=== PATIENT | female | born 1950 | race Caucasian/White ===

== ENCOUNTER 2016-12-12 13:25 | Emergency (ER) | payer OTHER ==
[~2016-12-12] VITALS: Ht 167.6 cm; Wt 93.0 kg
[~2016-12-12 13:25] MED LIST: CYMB30CA PO; DIPH2%T PO; NORV10TA PO; PRED5TAB PO; RANI150 PO; SYMB80AE INH
[2016-12-12 13:29] VITALS: BP 122/70; PULSE 85; RESP 16; RESP 17; TEMP 98; O2SAT 17; O2SAT 98
[2016-12-12 13:44] VITALS: O2SAT 96
[2016-12-12] MEDS ORDERED: GLUC100013 PO (13:44)
[2016-12-12] MEDS ORDERED: INDA1.25 (13:44)
[2016-12-12] MEDS ORDERED: PLAQ200T PO (13:44)
[2016-12-12] MEDS ORDERED: CALC1TAB12 PO (13:44)
[2016-12-12] MEDS ORDERED: POTA-163 PO (13:44)
[2016-12-12] MEDS ORDERED: MULTTAB67 PO (13:44)
[2016-12-12] MEDS ORDERED: SYMB80AE INH (13:44)
[2016-12-12] MEDS ORDERED: LEVO100T5 PO (13:44)
[2016-12-12] MEDS ORDERED: SODIUM CHLORIDE 0.9% FLUSH 10 ML FLUSH IVF PRN (13:45)
--- NOTE | 2016-12-12 13:46 | PD ---
HPI Chief Complaint: Respiratory Symptoms Time Seen by Provider: 13:36 Travel History International Travel<30 days: No Contact w/Intl Traveler<30days: No Traveled to known affect area: No History of Present Illness HPI PATIENT C/O FEW DAYS OF COUGH, CONGESTION, WHICH SHE WAS ABLE TO TOLERATE HOWVER TODAY SHE STARTED TO DEVELOP CHEST TIGHTNESS, SUBSTERNAL, NONRAD, 6/10, WITHOUT ALLEVIATING/AGGRAVATING FACTORS. PATIENT ALSO C/O RT LEG PAIN WELL, CLOSEST TO RIGHT KNEE WELL. PCP: [facility] - [place] [facility] JOHNSON PMHX: COPD PFSH Past Medical History Asthma: Yes Anxiety: Yes Depression: Yes Cancer: No Cardiovascular Problems: Yes (HTN) COPD: Yes Diminished Hearing: No Endocrine: No Gastrointestinal Disorders: Yes (IBS) Genitourinary: Yes (HX OF PID) Hypertension: Yes Immune Disorder: No Implanted Vascular Access Dvce: Yes Musculoskeletal: Yes Neurologic: No Psychiatric: Yes Reproductive: No Respiratory: Yes (ASTHMA) Past Surgical History Abdominal Surgery: No Cardiac Surgery: No Ear Surgery: No Endocrine Surgery: No Eye Surgery: No Genitourinary Surgery: No Gynecologic Surgery: Yes (OVARIAN CYSTECTOMY, FIBROADINOSIS REMOVAL) Oral Surgery: Yes (DENTAL IMPLANTS) Thoracic Surgery: No Other Surgery: Yes Social History Alcohol Use: No Tobacco Use: No Substance Use: No Allergies-Medications (Allergen,Severity, Reaction): Coded Allergies: Fish Containing Products (Unverified Allergy, Severe, Anaphylaxis, 12/12/16 ) Reported Meds & Prescriptions Reported Meds & Active Scripts Active Zithromax Z-Hitesh (Azithromycin) 250 Mg Dspk 250 Mg PO DIRECTED 500 MG (2 tabs) day 1, then 1 tab days 2-5. Reported Multiple Vitamin 1 Tab 1 Tab PO DAILY Glucosamine (Glucosamine Sulfate) 1,000 Mg Cap Unknown Dose PO DAILY Potassium Chloride ER (Potassium Chloride) 20 Meq Tab Unknown Dose PO BID Levothyroxine (Levothyroxine Sodium) 100 Mcg Tab 100 Mcg PO DAILY Calcium 500 +D (Calcium Carbonate-Cholecalciferol) 500-400 Mg-Unit Tab 1 Tab PO BID Plaquenil (Hydroxychloroquine Sulfate) 200 Mg Tab 200 Mg PO BID Take with food Symbicort Inh (Budesonide/Formoterol Fumarate) 80-4.5 Mcg/Act Aero Unknown Dose INH Q12HR Indapamide 1.25 Mg Tab Unknown Dose Review of Systems Except as stated in HPI: all other systems reviewed are Neg General / Constitutional: No: Fever Eyes: No: Visual changes HENT: No: Headaches Cardiovascular: No: Chest Pain or Discomfort Respiratory: Positive: Cough, Shortness of Breath Gastrointestinal: No: Abdominal Pain Genitourinary: No: Dysuria Musculoskeletal: No: Pain Skin: No Rash Neurologic: No: Weakness Psychiatric: No: Depression Endocrine: No: Polydipsia Hematologic/Lymphatic: No: Easy Bruising Physical Exam Narrative GENERAL: SKIN: Warm and dry. HEAD: Atraumatic. Normocephalic. EYES: Pupils equal and round. No scleral icterus. No injection or drainage. ENT: No nasal bleeding or discharge. Mucous membranes pink and moist. NECK: Trachea midline. No JVD. CARDIOVASCULAR: Regular rate and rhythm. RESPIRATORY: No accessory muscle use. Clear to auscultation. Breath sounds equal bilaterally. GASTROINTESTINAL: Abdomen soft, non-tender, nondistended. MUSCULOSKELETAL: Extremities without clubbing, cyanosis.. No obvious deformities. NO MAJOR EDEMA CHANGES NEUROLOGICAL: Awake and alert. No obvious cranial nerve deficits. Motor grossly within normal limits. Five out of 5 muscle strength in the arms and legs. Normal speech. PSYCHIATRIC: Appropriate mood and affect; insight and judgment normal. Data Data Last Documented VS Vital Signs Date Time Temp Pulse Resp B/P (MAP) Pulse Ox O2 Delivery O2 Flow Rate FiO2 12/12/16 13:53 Nasal Cannula 12/12/16 13:44 96 12/12/16 13:29 98.0 85 17 122/70 (87) Orders Orders Complete Blood Count With Diff (12/12/16 13:36) Comprehensive Metabolic Panel (12/12/16 13:36) B-Type Natriuretic Peptide (12/12/16 13:36) D-Dimer (12/12/16 13:36) Act Partial Throm Time (Ptt) (12/12/16 13:36) Prothrombin Time / Inr (Pt) (12/12/16 13:36) Ckmb (Isoenzyme) Profile (12/12/16 13:36) Troponin I (12/12/16 13:36) Influenzae A/B Antigen (12/12/16 13:36) Iv Access Insert/Monitor (12/12/16 13:36) Electrocardiogram (12/12/16 13:36) Ecg Monitoring (12/12/16 13:36) Oximetry (12/12/16 13:36) Oxygen Administration (12/12/16 13:36) Chest, Single Ap (12/12/16 13:36) Sodium Chloride 0.9% Flush (Ns Flush) (12/12/16 13:45) Us Leg Venous Doppler (12/12/16 13:42) Ed Discharge Order (12/12/16 15:44) Labs Laboratory Tests Test 12/12/16 13:50 White Blood Count 5.6 TH/MM3 Red Blood Count 4.55 MIL/MM3 Hemoglobin 14.0 GM/DL Hematocrit 41.5 % Mean Corpuscular Volume 91.2 FL Mean Corpuscular Hemoglobin 30.7 PG Mean Corpuscular Hemoglobin Concent 33.7 % Red Cell Distribution Width 13.3 % Platelet Count 241 TH/MM3 Mean Platelet Volume 9.0 FL Neutrophils (%) (Auto) 56.9 % Lymphocytes (%) (Auto) 31.1 % Monocytes (%) (Auto) 7.3 % Eosinophils (%) (Auto) 4.4 % Basophils (%) (Auto) 0.3 % Neutrophils # (Auto) 3.2 TH/MM3 Lymphocytes # (Auto) 1.8 TH/MM3 Monocytes # (Auto) 0.4 TH/MM3 Eosinophils # (Auto) 0.2 TH/MM3 Basophils # (Auto) 0.0 TH/MM3 CBC Comment DIFF FINAL Differential Comment Prothrombin Time 10.7 SEC Prothromb Time International Ratio 1.0 RATIO Activated Partial Thromboplast Time 26.8 SEC D-Dimer Quantitative (PE/DVT) 0.50 MG/L FEU Blood Urea Nitrogen 14 MG/DL Creatinine 0.80 MG/DL Random Glucose 104 MG/DL Total Protein 7.1 GM/DL Albumin 3.2 GM/DL Calcium Level 8.4 MG/DL Alkaline Phosphatase 70 U/L Aspartate Amino Transf (AST/SGOT) 26 U/L Alanine Aminotransferase (ALT/SGPT) 32 U/L Total Bilirubin 0.3 MG/DL Sodium Level 137 MEQ/L Potassium Level 3.4 MEQ/L Chloride Level 101 MEQ/L Carbon Dioxide Level 29.0 MEQ/L Anion Gap 7 MEQ/L Estimat Glomerular Filtration Rate 71 ML/MIN Total Creatine Kinase 73 U/L Troponin I LESS THAN 0.02 NG/ML B-Type Natriuretic Peptide 146 PG/ML MDM Medical Decision Making Medical Screen Exam Complete: Yes Emergency Medical Condition: Yes Medical Record Reviewed: Yes Interpretation(s) NSR 73, PAC'S, NL INTERVALS, NO STEMI PATTERN Differential Diagnosis COPD EXAC V PE V DVT V PNA V PTX V ATYPICAL STEMI V NONSTEMI Narrative Course CXR IS NEG FOR PNA/PTX, ALSO ULTRASOUND NEG FOR DVT. PATIENT HAS NEG TROPNIN AND EKG NEG FOR STEMI. Diagnosis Primary Impression: BRONCHITIS Patient Instructions: Acute Bronchitis (ED), General Instructions Additional Instructions: YOU ARE ADVISED TO FOLLOWUP WITH YOUR ENVIRONMENTAL ENGINEER SCIENTIST FOR OUTPATIENT CARDIAC RISK STRATIFICATION. Scripts Azithromycin (Zithromax Z-Hitesh) 250 Mg Dspk 250 MG PO DIRECTED for Infection, #1 DSPK 0 Refills 500 MG (2 tabs) day 1, then 1 tab days 2-5. Prov: Michelet Wade MD 12/12/16 Disposition: 01 DISCHARGE HOME Condition: Stable Michelet Wade MD Dec 12, 2016 13:46
[2016-12-12 14:05] LABS: AUTOMATED NEUTROPHIL # 3.2 TH/MM3 (1.8-7.7); BASOPHIL % 0.3 % (0.0-2.0); EOSINOPHIL # 0.2 TH/MM3 (0-0.4); EOSINOPHIL % 4.4 % (0.0-4.0); HEMATOCRIT 41.5 % (35.0-46.0); HEMO FLAGS DIFF FINAL; LYMPH % 31.1 % (9.0-44.0); LYMPHOCYTE # 1.8 TH/MM3 (1.0-4.8); MEAN CELL VOLUME 91.2 FL (80.0-100.0); MEAN CORPUSCULAR HEMOGLOBIN 30.7 PG (27.0-34.0); MEAN CORPUSCULAR HGB CONC 33.7 % (32.0-36.0); MONO % 7.3 % (0.0-8.0); NEUT % 56.9 % (16.0-70.0); PLATELET COUNT 241 TH/MM3 (150-450); RED BLOOD COUNT 4.55 MIL/MM3 (4.00-5.30); RED CELL DISTRIBUTION WIDTH 13.3 % (11.6-17.2); WHITE BLOOD COUNT 5.6 TH/MM3 (4.0-11.0)
[2016-12-12 14:13] LABS: CHLORIDE 101 MEQ/L (98-107); POTASSIUM 3.4 MEQ/L (3.5-5.1); SODIUM (NA) 137 MEQ/L (136-145)
[2016-12-12 14:17] LABS: ANION GAP 7 MEQ/L (5-15); BLOOD UREA NITROGEN 14 MG/DL (7-18)
[2016-12-12 14:20] LABS: ALT (GPT) 32 U/L (10-53); AST (GOT) 26 U/L (15-37); GLOMERULAR FILTRATION RATE 71 ML/MIN (>89)
--- NOTE | 2016-12-12 14:20 | RADRPT ---
EXAM DATE/TIME: 12/12/2016 13:42 [facility] COMPARISON: CHEST SINGLE AP, March 31, 2013, 9:22. INDICATIONS : Short of breath, tightness in chest for 2 days, weakness MEDICAL HISTORY : None. SURGICAL HISTORY : None. ENCOUNTER: Initial ACUITY: 2 days PAIN SCORE: Non-responsive. LOCATION: Bilateral chest FINDINGS: A single view of the chest demonstrates the lungs to be symmetrically aerated without evidence of mas s, infiltrate or effusion. The cardiomediastinal contours are unremarkable. Osseous structures are intact. CONCLUSION: No acute disease. Ashwin Weaver MD on December 12, 2016 at 14:18 Board Certified Radiologist. This report was verified electronically.
[2016-12-12 14:21] LABS: TOTAL BILIRUBIN ADULT 0.3 MG/DL (0.2-1.0)
[2016-12-12 14:22] LABS: ALKALINE PHOSPHATASE 70 U/L (45-117); APTT (PATIENT) 26.8 SEC (24.3-30.1); PROTHROMBIN TIME - PATIENT 10.7 SEC (9.8-11.6)
[2016-12-12 14:46] LABS: CREATINE KINASE 73 U/L (26-192)
--- NOTE | 2016-12-12 14:54 | RADRPT ---
EXAM DATE/TIME: 12/12/2016 14:35 [facility] COMPARISON: No previous studies available for comparison. INDICATIONS : Right leg pain. MEDICAL HISTORY : Hypertension. Chronic obstructive pulmonary disease. Asthma. Pelvic imflammatory disease. Osteo porosis. Depression. SURGICAL HISTORY : Ovarian cystectomy. Fibroadinosis removal. ENCOUNTER: Initial ACUITY: 2 day PAIN SCORE: 3/10 LOCATION: Right leg. TECHNIQUE: Venous ultrasound of the leg was performed from the inguinal ligament to the proximal calf. Real-cordell e, color Doppler and spectral tracing, compression and augmentation techniques were used. FINDINGS: There is normal compressibility of the deep venous system from the inguinal region to the proximal ca lf. No echogenic clot is seen in the lumen of the common femoral, femoral, popliteal, and posterior tibial veins. There is a normal response of the venous system to proximal and distal augmentation an d respiration. CONCLUSION: No evidence of deep venous thrombosis within the right lower extremity. Ashwin Weaver MD on December 12, 2016 at 14:51 Board Certified Radiologist. This report was verified electronically.
[2016-12-12] MEDS ORDERED: ZITHTAB PO (15:13)
--- NOTE | 2016-12-14 08:47 | EKG ---
Date Performed: 12/12/2016 Time Performed: 13:55:50 PTAGE: 66 years EKG: Sinus rhythm WITH OCCASIONAL SUPRAVENTRICULAR PREMATURE COMPLEXES BORDERLINE ECG NO PREVIOUS TRACING DOCTOR: Andres Phan Interpretating Date/Time 12/14/2016 08:44:41
== END 2016-12-12 16:01 | disposition home or self-care (01) ==
LOC: PHED 13:25
DX: J44.0 Chronic obstructive pulmonary disease with (acute) lower respiratory infection (principal); J20.9 Acute bronchitis, unspecified; I10 Essential (primary) hypertension; R07.89 Other chest pain; R06.02 Shortness of breath
CPT/HCPCS: 71010; 80053; 82550; 83880; 84484; 85025; 85379; 85610; 85730; 87804; 93005; 93971; 99285